=== PATIENT | male | born 1945 | race Caucasian/White ===

== ENCOUNTER 2017-06-18 16:40 | Emergency (ER) | payer MEDICARE, OTHER, SELFPAY ==
[2017-06-18 16:42] VITALS: BP 131/100; PULSE 67; RESP 18; TEMP 37.3; O2SAT 99; BMI 34.0
--- NOTE | 2017-06-18 17:16 | RAD_ITS ---
STUDY: X-RAY CHEST REASON FOR EXAM: Male, 71 years old. Dyspnea TECHNIQUE: Frontal view of the chest COMPARISON: None. FINDINGS: The lungs are clear. There are no pleural effusions. There is no pneumothorax. The heart is normal in size. The visualized osseous structures are within normal limits. RAD/Chest 1 View (Portable) IMPRESSION: No acute thoracic pathology. Electronically Signed: Sagar Falcon, at 17:47 EDT Tel , Service support ,
--- NOTE | 2017-06-18 17:16 | EKG12_ITS ---
Test Reason : Blood Pressure : / mmHG Vent. Rate : 141 BPM Atrial Rate : 131 BPM P-R Int : 000 ms QRS Dur : 088 ms QT Int : 314 ms P-R-T Axes : 000 046 022 degrees QTc Int : 480 ms Atrial fibrillation Abnormal ECG Confirmed by NISH GARCIA ([id number]), senior technical editor IOANA VIDAL ([id number]) on 06/21/2017 2:31:48 PM Referred By: EDINSON Confirmed By:NISH GARCIA
--- NOTE | 2017-06-18 17:19 | ED.VISSUMM ---
- ER Visit Summary Date of Service: 06/18/17 Chief Complaint: Linette albrecht with RVR History of Present Illness: The patient is a 71 M with history of gastric bypass and hypertension who presents from urgent care after being found in A. fib with RVR. Patient had gone to urgent care because of 4 days of URI symptoms including cough, congestion, myalgias, and dizziness. He has been taking Sudafed for his symptoms. He denies any chest pain or shortness of breath. No history of atrial fibrillation and no sensation of palpitations. Physical Examination: Vital signs: afebrile, hemodynamically stable, no hypoxia on room air General: well nourished, well developed, in no distress Skin: warm, dry, no rash, no pallor HEENT: normocephalic and atraumatic; PERRL, EOMI, moist mucous membranes Cardiovascular: Irregular tachycardia without murmurs, no peripheral edema, 2+ pulses all distal extremities Respiratory: No increased work of breathing, lungs are clear to auscultation bilaterally, no rales, rhonchi or wheezing Abdominal: Abdomen is soft, nontender with normoactive bowel sounds, no guarding or rebound, no masses MSK: Moves all extremities, no deformities, normal strength Neuro: Awake and alert, oriented ?4. No facial droop, sensation and motor function intact and symmetric Test Results: Abnormal Lab Results 06/18/17 06/18/17 06/18/17 17:35 17:35 17:35 WBC 4.0 L RBC 5.13 Hgb 14.9 Hct 46.0 MCV 89.7 MCH 29.0 MCHC 32.4 RDW 13.8 RDW Differential 45.1 H Plt Count 151 MPV 11.4 Immature Gran % (Auto) 0.200 Neut % (Auto) 56.2 Lymph % (Auto) 28.8 [place] % (Auto) 12.4 H Eos % (Auto) 2.2 Baso % (Auto) 0.2 Absolute Neuts (auto) 2.3 Absolute Lymphs (auto) 1.16 Total Counted Not Reportable PT 14.9 INR 1.2 APTT 35.9 Sodium 139 Potassium 4.3 Chloride 104 Carbon Dioxide 26.0 Anion Gap 9 BUN 7 Creatinine 0.88 Estim Creat Clear Calc 86.96 Est GFR (MDRD) Af Amer 110 Est GFR (MDRD) Non-Af 91 BUN/Creatinine Ratio 7.9 L Glucose 106 Calcium 8.4 L Troponin I < 0.02 TSH 1.48 Emergency Department Course and Treatment: EKG showed atrial fibrillation with rapid ventricular response without any ischemic changes. Patient has had no sense of palpitations and thus it is unclear how long he has been in A. fib with RVR. Troponin negative. TSH within normal limits. No electrolyte derangements. No leukocytosis. No pneumonia on chest x-ray. Patient was given a dose of IV Cardizem with rate control. This was followed by oral Cardizem. Patient remained hemodynamically stable and asymptomatic other than his URI symptoms. Patient was discussed with Dr. Eduardo, who recommended patient be started on Xarelto and continued on oral Cardizem, with close outpatient follow-up with his office. I discussed with patient to avoid any stimulants such as Sudafed, as this may have contributed to his rapid heart rate. Patient will continue symptomatic control with [id number] medications but avoid any stimulants. He was discharged home in improved condition. Treatment Plan: [] Disposition: [] Impression: A. fib with RVR, URI symptoms This note was generated with [employer] dictation software. It may contain incorrect words, spelling, and punctuation that were not noted in review of the chart prior to signing ED Disposition - Plan for ED Patient: Disposition: Home or Assisted Living Chief Complaint: Palpitations Instructions: ED Afib Prescriptions: Rivaroxaban [Xarelto] 20 mg PO DAILY 30 Days #30 tab Diltiazem CD [Cardizem CD] 120 mg PO BID #60 cap Referrals: Miko Farooq MD [Primary Care Provider] - Anthony Eduardo MD [STAFF PHYSICIAN] - As soon as possible Additional Instructions: You have been prescribed 2 new medications for treatment of your atrial fibrillation. Please take the Xarelto daily and the Cardizem twice daily as prescribed. Please follow up with Dr. Eduardo, the bingo checker. His office will call you with a follow up appointment. If you do not hear from his office within 2 days, please call to schedule the follow-up appointment. Do not take Sudafed or any other stimulants for your cold, as these may make your heart rate worse.
[2017-06-18] MEDS: dilTIAZem 25 MG/5 ML Vial 20 MG IV BOLUS (17:31)
[2017-06-18] MEDS: Aspirin 81 MG TAB.CHEW 324 MG PO (17:31)
[2017-06-18 18:00] LABS: Absolute Lymphocyte Count 1.16 X10^3/ul (0.83-4.51); Absolute Neutrophil Count 2.3 X10^3/uL (2.0-7.7); Basophil# 0.01 X10^3/uL; Basophil% 0.2 % (0-1); Eosinophil# 0.09 X10^3/uL; Eosinophils% 2.2 % (0-5); Hemoglobin 14.9 g/dl (13.0-16.5); Lymphocyte # 1.16 X10^3/ul (4.0); Lymphocyte % 28.8 % (19-41); Mean Corp Hgb Conc 32.4 g/gl (32-36); Mean Corpuscular Volume 89.7 fL (80-94); Mean Platelet Vol. 11.4 fl (6.2-12.0); Monocyte% 12.4 % (0-10); Neutrophil # 2.26 X10^3/uL (2.7-7.7); Neutrophil % 56.2 % (47-70); Platelet Count 151 K/mm3 (150-450); RBC Distribution Width CV 13.8 % (11.6-14.6); RBC Distribution Width SD 45.1 fl (35.1-43.9); Red Blood Count 5.13 M/mm3 (4.6-6.2)
[2017-06-18 18:03] LABS: International Normalized Ratio 1.2; Prothrombin Time (Protime)PT. 14.9 SECONDS (11.7-14.9)
[2017-06-18 18:04] LABS: Partial Thromboplast Time 35.9 Seconds (24.1-36.2)
[2017-06-18 18:07] VITALS: PULSE 83
[2017-06-18 18:14] LABS: POSITIVE COUNT NO; POSITIVE DIFFERENTIAL NO; POSITIVE MORPHOLOGY NO
[2017-06-18 18:15] LABS: Anion Gap 9 (5-15); BUN 7 mg/dL (7-18); BUN/Creat Ratio 7.9 RATIO (10-20); Calcium,Total 8.4 mg/dL (8.5-10.1); Chloride 104 mmol/L (98-107); Creatinine, Serum 0.88 mg/dL (0.70-1.30); EST Glomerular Filtration Rate 91 mL/min (>60); Est Glom Filt Rate - Afr Amer 110 mL/min (>60); Estimated Creatinine Clearance 86.96 ml/min; Glucose 106 mg/dL (74-106); Potassium 4.3 mmol/L (3.5-5.1); Sodium Level 139 mmol/L (136-145); Thyroid Stim Hormone (TSH) 1.48 uIU/mL (0.358-3.74)
--- NOTE | 2017-06-18 19:08 | ED.DEP ---
ED Disposition - Plan for ED Patient: Disposition: Home or Assisted Living Chief Complaint: Palpitations Instructions: ED Afib Prescriptions: Rivaroxaban [Xarelto] 20 mg PO DAILY 30 Days #30 tab Diltiazem CD [Cardizem CD] 120 mg PO BID #60 cap Referrals: Miko Farooq MD [Primary Care Provider] - Anthony Eduardo MD [STAFF PHYSICIAN] - As soon as possible Additional Instructions: You have been prescribed 2 new medications for treatment of your atrial fibrillation. Please take the Xarelto daily and the Cardizem twice daily as prescribed. Please follow up with Dr. Eduardo, the automatic splicing machine operator. His office will call you with a follow up appointment. If you do not hear from his office within 2 days, please call to schedule the follow-up appointment. Do not take Sudafed or any other stimulants for your cold, as these may make your heart rate worse.
[2017-06-18] MEDS: dilTIAZem CD 120 MG Capsule PO (19:16)
[2017-06-18] MEDS: Rivaroxaban 20 MG Tablet PO (19:16)
[2017-06-18 19:17] VITALS: BP 139/97; PULSE 92; RESP 18; O2SAT 96
== END 2017-06-18 19:23 | disposition home or self-care (01) ==
PROVIDERS: Emergency Provider Emergency Medicine; Family Provider Family Medicine; PCP Family Medicine
DX: I48.91 Unspecified atrial fibrillation (principal); J06.9 Acute upper respiratory infection, unspecified; Z98.84 Bariatric surgery status; I10 Essential (primary) hypertension
CPT/HCPCS: 71045; 80048; 84443; 84484; 85025; 85610; 85730; 93005; 96374; 99285; A4216

== ENCOUNTER → 2017-07-03 10:45 | Outpatient (CLI) | payer MEDICARE, OTHER, SELFPAY ==
--- NOTE | 2017-07-03 10:47 | ECHOD_ITS ---
Reason For Study: AFIB/FLUTTER Procedure This was a 2D Doppler, Color Flow transthoracic echocardiogram. The study was technically difficult. Due to body habitus. Contrast injection was performed. Exam performed in department. Left Ventricle Normal LV size. Sigmoid septum. Left ventricular systolic function is normal. The estimated ejection fraction is 55 %. Unable to assess diastolic dysfunction. No regional wall motion abnormalities noted. Right Ventricle Normal RV size. Normal systolic function. Atria The left atrium is severely enlarged. The right atrium is mildly enlarged. Mitral Valve Normal mitral valve. Tricuspid Valve Normal tricuspid valve. Mild (1+) tricuspid valve insufficiency. Pulmonary artery systolic pressure is 28 mmHg. Aortic Valve The aortic valve is not well visualized. Pulmonic Valve The pulmonic valve is not well visualized. Great Vessels Normal aortic root. The pulmonary artery is normal size. Normal inferior vena cava. Pericardium/Pleural No pericardial effusion. Medication Diluted definity 4.0ml given slow IV push to enhance endocardial definition. MMode/2D Measurements & Calculations LVIDd: 4.6 cm IVSd: 1.5 cm Ao root diam: 3.1 cm LVIDs: 3.1 cm LVPWd: 1.1 cm LA dimension: 5.4 cm RVDd: 3.7 cm FS: 33.0 % LAV(MOD-bp): 144.7 ml LAV(MOD-bp) Indexed: 62.6 ml/m2 LA A4 area: 36.0 cm2 RA A4 area: 20.8 cm2 LAV(MOD-sp2): 139.2 ml LAV(MOD-sp4): 149.0 ml Doppler Measurements & Calculations MV E max pat: 84.5 cm/sec Ao V2 max: 113.9 cm/sec LV V1 max: 97.9 cm/sec Ao max P.2 mmHg LV V1 max P.8 mmHg PA V2 max: 80.8 cm/sec TR max pat: 237.4 cm/sec TR max P.6 mmHg Interpretation Summary Normal LV size. Sigmoid septum. Left ventricular systolic function is normal. The estimated ejection fraction is 55 %. The left atrium is severely enlarged. Pulmonary artery systolic pressure is 28 mmHg. Contrast injection was performed. Ordering Physician: Anthony Eduardo Referring Physician: Zoran Farooq Performed By: Lexis Rubio, ÁNGELA, RVT
== END ==
PROVIDERS: Family Provider Family Medicine; PCP Family Medicine; Visit Provider Internal Medicine Cardiovascular Disease
DX: I07.1 Rheumatic tricuspid insufficiency (principal); I48.91 Unspecified atrial fibrillation; I48.92 Unspecified atrial flutter
CPT/HCPCS: 93306; Q9957; A4216

== ENCOUNTER → 2017-07-05 07:06 | Outpatient (CLI) | payer MEDICARE, OTHER, SELFPAY ==
--- NOTE | 2017-07-05 17:32 | STRESSREP ---
Stress Test Report Exercise myocardial perfusion stress test. 71-year-old man with a history of new onset atrial fibrillation. Stress protocol: Resting EKG demonstrates atrial for ablation with a rate of 94 beats minute occasional premature ventricular complexes noted. The patient exercised according to regular Bradford protocol for total duration of 5 minutes the maximum heart rate attained was 1 81 bpm was 119% maximum predicted heart rate the maximum workload attained was 7 metabolic equivalents. At rest there were no ST or T-wave changes noted suggest ischemia the patient maintained atrial for ablation throughout the recording. At peak exercise upsloping ST changes only were noted would not be the criteria for ischemia. No clinical angina was noted. Myocardial perfusion protocol. 14.93 of technetium 99m sestamibi was injected at rest. Patient exercised according to regular Bradford protocol for 5 minutes attaining 119% maximum predicted heart rate and a workload of 7 metabolic equivalents. At peak exercise 44.6 mCi of technetium 99m sestamibi was injected stress images were obtained stress and rest images were reconstructed and compared in the short axis vertical long and horizontal long axis. Gated images were also obtained Perfusion SPECT analysis: Review of the stress images demonstrate normal uptake of tracer noted in all areas of myocardium. The resting images similarly demonstrate normal uptake of tracer noted in all areas myocardium. No areas of reversibility and is just ischemia no previous infarct is noted. Gated SPECT analysis. Normal EF 51% Conclusion: Exercise myocardial perfusion stress test with no evidence of ischemia at a moderate workload. Atrial fibrillation with good heart rate response to exercise. Preserved ejection fraction.
== END ==
PROVIDERS: Family Provider Family Medicine; PCP Family Medicine; Visit Provider Internal Medicine Cardiovascular Disease
DX: I48.91 Unspecified atrial fibrillation (principal); I25.10 Atherosclerotic heart disease of native coronary artery without angina pectoris
CPT/HCPCS: 78452; 93017; A9500; A4216

== ENCOUNTER 2017-07-30 11:04 | Day surgery (SDC) | payer MEDICARE, OTHER, SELFPAY ==
[2017-07-25 11:43] LABS: International Normalized Ratio 1.9; Prothrombin Time (Protime)PT. 21.7 SECONDS (11.7-14.9)
[2017-07-25 12:13] LABS: Anion Gap 7 (5-15); BUN 13 mg/dL (7-18); BUN/Creat Ratio 14.3 RATIO (10-20); Calcium,Total 8.6 mg/dL (8.5-10.1); Chloride 104 mmol/L (98-107); Creatinine, Serum 0.91 mg/dL (0.70-1.30); EST Glomerular Filtration Rate 88 mL/min (>60); Est Glom Filt Rate - Afr Amer 106 mL/min (>60); Glucose 111 mg/dL (74-106); Potassium 4.2 mmol/L (3.5-5.1); Sodium Level 138 mmol/L (136-145)
[2017-07-27 09:30] VITALS: BMI 33.7
--- NOTE | 2017-07-30 12:23 | PCM.OP.BLANK ---
Operative Report Date of Procedure: 07/30/17 DC cardioversion. 71-year-old man with a history of chronic atrial fibrillation who has been anticoagulated with Xarelto. The patient has an ejection fraction of 55% and was brought in for elective DC cardioversion. After the patient had been evaluated by Dr. Gutierrez of the critical care division, he was anesthetized with 120 mg of intravenous propofol. AP pads were applied and 200 J of DC cardioversion energy were applied which was unsuccessful in converting him to sinus rhythm and subsequently 300 J ?2 DC cardioversion energy were applied. The patient reverted briefly into sinus rhythm for a few minutes and then went back into atrial fibrillation. Patient tolerated the procedure well. Unsuccessful DC cardioversion to sinus rhythm from atrial fibrillation. Plan Add amiodarone 200 mg twice daily and repeat cardioversion in 3 weeks.
--- NOTE | 2017-07-30 17:11 | PCM.OP.BLANK ---
Problem List (1) Atrial fibrillation with rapid ventricular response Status: Acute (2) Obesity (BMI 30.0-34.9) Status: Chronic (3) Type 2 diabetes mellitus without complications Status: Resolved Operative Report Date of Procedure: 07/30/17 - Conscious sedation CONSCIOUS SEDATION REPORT BRIEF HISTORY OF PRESENT ILLNESS: The patient is an 71-year-old male who presented to [facility] for an elective outpatient cardioversion due to underlying atrial fibrillation by Dr. Eduardo. The patient's last surface echocardiogram revealed ejection fraction of 55%. The patient denies a previous history of anesthetic complications. Patient denies a history of asthma or other lung pathology. Patient reports a history of obstructive sleep apnea, but has been noncompliant with therapy. Patient is currently anticoagulated on Xarelto. Patient denies any history of smoking. PHYSICAL EXAMINATION: VITAL SIGNS: Reviewed and were acceptable. GENERAL: The patient is a male, in no apparent distress, speaking in full sentences. HEENT: Normocephalic, atraumatic. Mucous membranes are moist and pink. Good mouth opening noted. Trachea is midline. Good neck mobility. Mallampati 3 CHEST: S1, S2 irregularly irregular. No murmurs, rubs or gallops were noted. LUNGS: Clear to auscultation bilaterally without appreciable wheezes, rales or rhonchi. ABDOMEN: Soft, nontender, nondistended. Positive bowel sounds. EXTREMITIES: There is no clubbing, cyanosis or edema. ASA Class: II DESCRIPTION OF PROCEDURE: After confirmation of informed consent, the patient's anesthesia plan was reviewed in detail. Propofol was chosen. Risks and benefits were reviewed and the patient agreed to proceed. At 11:51 AM, the patient was given 40 mg of propofol. The patient required a total of 120 mg of propofol over the course of the entire procedure. The patient did received attempts at cardioversion using 200 J, 300 J and 300 J respectively. None were successful in achieving normal sinus rhythm. Attempts were aborted at Dr. Eduardo's recommendation. The patient was monitored until 12:04 PM, at which time he reached his baseline mental status and function. The patient tolerated the procedure well. COMPLICATIONS: Unsuccessful procedure ESTIMATED BLOOD LOSS: None RECOMMENDATIONS: Okay to recover in usual fashion. Code Visit 9xxxx: Other Procedure See Report - 18147 - 13 minutes of conscious sedation
== END 2017-07-30 13:15 | disposition home or self-care (01) ==
LOC: CLSP 11:04
PROVIDERS: Family Provider Family Medicine; PCP Family Medicine; Visit Provider Internal Medicine Cardiovascular Disease
DX: I48.2 Chronic atrial fibrillation (principal); E11.9 Type 2 diabetes mellitus without complications; Q76.0 Spina bifida occulta; I10 Essential (primary) hypertension; G47.33 Obstructive sleep apnea (adult) (pediatric); E66.9 Obesity, unspecified; K21.9 Gastro-esophageal reflux disease without esophagitis; Z91.19 Patient's noncompliance with other medical treatment and regimen; Z79.01 Long term (current) use of anticoagulants; Z79.899 Other long term (current) drug therapy; Z98.84 Bariatric surgery status
CPT/HCPCS: 36415; 80048; 85610; 92960; 93005; J7030

== ENCOUNTER 2017-08-20 10:23 | Day surgery (SDC) | payer MEDICARE, OTHER, SELFPAY ==
[2017-08-17 09:50] VITALS: BMI 33.7
--- NOTE | 2017-08-20 10:55 | PCM.PN.BLA ---
Progress Note ADDENDUM Addendum entered and electronically signed by JUAN lOsen 08/20/17 11:01: Patient had underwent an unsuccessful cardioversion on July 30, 2017. He does have a history of persistent atrial fibrillation with a normal ejection fraction. He was then started on amiodarone with the plan of repeating a cardioversion in 3 weeks. He is here today for a cardioversion. He has been anticoagulated with a factor Xa inhibitor. He is symptomatic with his atrial fibrillation. He notes that he is fatigued, he is short of breath and does feel his atrial fibrillation. I have re-examined the patient. There are no clinical changes since the date of exam. Assessment & Plan 1. Atrial fibrillation with rapid ventricular response I48.91 Orders Orders: Echo Complete 06/29/17 Nuclear Stress Test - Treadmil 06/29/17 2. Essential hypertension I10 Plan Detail Other Medications Refilled: rivaroxaban 20 mg PO DAILY 30 days diltiazem CD 120 mg PO BID Follow Up 1 Month ([facility]) HPI HPI Chief Complaint: Initial visit Details: FARIBA ALATORRE, is a 71 M who presents to the office today for an initial visit. He had presented to the urgent care clinic with head congestion nasal drainage sore throat and had been taking [id number] Mucinex and Sudafed. He was noted to be in atrial for ablation with rapid ventricular response rate with a heart rate of approximately 128 bpm he was started on Xarelto as well as Cardizem and is done well since he was referred to us for further evaluation. He denies any chest pain or shortness breath or paroxysmal nocturnal dyspnea pedal edema no neck arm or jaw discomfort suggest angina no dizziness or diaphoresis no near syncope or syncope. His previous EKGs were reviewed. His physical exam demonstrates clear lung manuel regular rate and rhythm irregular regular heart rate. Intake Vital Signs 06/29/17 Height 6 ft 06/29/17 Weight: 249 lb 06/29/17 Body Mass Index (BMI) 33.7 06/29/17 Blood Pressure 110/70 06/29/17 Respiratory Rate 16 06/29/17 Pulse Rate 82 Intake Visit Reasons: [facility] ER 3-19 Allergies lisinopril Allergy (Verified 06/29/17 11:30) Shortness of breath ursodiol Allergy (Verified 06/29/17 11:30) Rash Medications Losartan Potassium [Cozaar] 25 mg PO DAILY 06/18/17 [History Confirmed 06/29/17] cholecalciferol (vitamin D3) 1,000 unit capsule 3,000 unit PO QDAY cap 06/28/17 [History Confirmed 06/29/17] cyanocobalamin (vit B-12) 1,000 mcg capsule 1,000 mcg PO QDAY 06/28/17 [History Confirmed 06/29/17] sildenafil 100 mg tablet PO 10 Days #10 06/28/17 [History Confirmed 06/29/17] diltiazem CD 120 mg capsule,extended release 24 hr 120 mg PO BID #180 cap 06/29/17 [Rx Confirmed 06/29/17] rivaroxaban 20 mg tablet 20 mg PO DAILY 30 Days #30 tab 06/29/17 [Rx Confirmed 06/29/17] [facility] Medical History Type 2 diabetes mellitus without complications (Resolved) Obesity (BMI 30.0-34.9) (Chronic) Hypertension (Chronic) Atrial fibrillation with rapid ventricular response (Acute ~06/18/17) GERD (gastroesophageal reflux disease) (Chronic) 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) Spina bifida occulta (Chronic) Sleep apnea (Ruled-out) Insomnia (Inactive) Surgical History History of gastric bypass (Chronic ~12/2008) History of tonsillectomy (Chronic) ankle surgery (Chronic) Family History Father CAD (coronary artery disease) CABG mid 50's and redo mid 70's Mother Heart disease ICD Social History Smoking Status: Never smoker ROS Const Const: Positive for fatigue; negative for weakness, difficulty sleeping, frequent falls, headache(s) or excessive sweating Eyes Eyes: Negative for loss of peripheral vision, transient loss of vision, blurry vision or double vision ENT ENT: Negative for headache(s), dizziness, Nosebleed/epistaxis or balance problems Cardio Chest Pain: No Edema: None Muscle aches with walking: None Resp Respiratory: Positive for SOB with activity (When climbing stairs); negative for SOB at rest, SOB orthopnea\SOB lying down or paroxysmal nocturnal dyspnea GI GI: Negative nausea or heartburn : Negative for hematuria Musc Musc: Negative for muscle aches/ myalgia, muscle weakness, joint pain or balance problems Skin Skin: Negative non-healing lesions, unusual bruising or rash Neuro Neuro: Negative for weakness, frequent falls, blurry vision, headache(s), dizziness, lightheadedness, orthostatic symptoms or double vision Sheng Hematologic/Lymphatic: Negative for easy bruising Endo Endo: Positive for fatigue; negative for excessive sweating or increased thirst/drinking Psych Psych: Negative for anxiety or depression Allergy Allergy/Immunology: Negative for hives, Negative for rash Cardiology Exam Const Appearance: cooperative, healthy appearing, well developed, well groomed and no acute distress Nutritional Appearance: well nourished and average body habitus Orientation: alert, awake and oriented x3 Head Head: normal to inspection, normocephalic and atraumatic Ears: hearing grossly normal bilaterally and external ears normal Nose: external nose normal, nasal mucous membranes and turbinates normal, nares normal, septum normal, no nasal discharge Face and Sinus: face symmetric Mouth: oral mucosae normal, tongue normal, oropharynx normal and moist mucous membranes Teeth and gingiva: dentition normal Throat: posterior oropharynx normal, tonsils normal and uvula midline Eyes General: appearance normal, both eyes and all related structures Eyelids: eyelids normal Conjunctivae: conjunctivae normal Pupils: PERRL, normal by confrontation and accommodation normal EOM: EOM intact bilaterally Neck Neck: normal visual inspection, trachea midline and no JVD JVD: +5 Carotids: normal carotid upstroke and bounding pulses Chest Chest inspection: normal inspection of the chest, symmetric chest movement and normal respiratory effort Auscultation: Bilateral: Clear to Auscultation Cardio Palpation: normal PMI Rhythm: irregular rhythm Heart sounds: S1 normal and S2 normal GI GI: normal to inspection, soft, no hepatosplenomegaly and bowel sounds present Neuro General: alert, awake, oriented x3, no focal sensory deficit, gait normal and moves all extremities Skin Skin: no rashes or lesions noted Extremities Pulses: Normal: Right Femoral Pulse, Left Femoral Pulse, Right Dorsalis Pedis Pulse, Left Dorsalis Pedis Pulse, Right Posterior Tibial Pulse, Left Posterior Tibial Pulse, Right Radial Pulse, Left Radial Pulse Lower Extremity Edema: None: Bilateral Musculoskel Musculoskeletal: No joint tenderness Psych Psychological: normal affect Assessment & Plan 1. Atrial fibrillation with rapid ventricular response I48.91 Plan He does have a history of atrial fibrillation with rapid ventricular response rate to the exact duration is unclear at this particular time my recommendation is for him to continue on the Xarelto as well as the calcium channel susan and set him up for an echocardiogram as well as a myocardial perfusion stress test. Depending on the results further recommendations will be made. I would like to recommend that we bring him back in 4 weeks and then set him up for a DC cardioversion if he is still in atrial fibrillation Orders Orders: Echo Complete Today Nuclear Stress Test - Treadmil Today 2. Essential hypertension I10 Plan His blood pressure appears to be under good control and we will continue the losartan and Cardizem for now without any changes. Thank you for allowing me to participate in the care of your patient. Please don't hesitate to call if any issues arise Plan Detail Other Medications Refilled: rivaroxaban 20 mg PO DAILY 30 days diltiazem CD 120 mg PO BID Follow Up 1 Month (r) Coding Level of Care Code Off vis,new,level 4 Diagnoses Atrial fibrillation with rapid ventricular response I48.91 Essential hypertension I10 Hypertension type: essential hypertension Coding Level of Care Code Off vis,new,level 4 Diagnoses Atrial fibrillation with rapid ventricular response I48.91 Essential hypertension I10 Hypertension type: essential hypertension
--- NOTE | 2017-08-20 11:02 | PN_ITS ---
Progress Note ADDENDUM Addendum entered and electronically signed by JUAN Olsen 11:01: Patient had underwent an unsuccessful cardioversion on July 30, 2017. He does have a history of persistent atrial fibrillation with a normal ejection fraction. He was then started on amiodarone with the plan of repeating a cardioversion in 3 weeks. He is here today for a cardioversion. He has been anticoagulated with a factor Xa inhibitor. He is symptomatic with his atrial fibrillation. He notes that he is fatigued, he is short of breath and does feel his atrial fibrillation. I have re-examined the patient. There are no clinical changes since the date of exam. Assessment & Plan 1. Atrial fibrillation with rapid ventricular response I48.91 Orders Orders: Echo Complete 06/29/17 Nuclear Stress Test - Treadmil 06/29/17 2. Essential hypertension I10 Plan Detail Other Medications Refilled: rivaroxaban 20 mg PO DAILY 30 days diltiazem CD 120 mg PO BID Follow Up 1 Month ([facility]) HPI HPI Chief Complaint: Initial visit Details: FARIBA ALATORRE, is a 71 M who presents to the office today for an initial visit. He had presented to the urgent care clinic with head congestion nasal drainage sore throat and had been taking [id number] Mucinex and Sudafed. He was noted to be in atrial for ablation with rapid ventricular response rate with a heart rate of approximately 128 bpm he was started on Xarelto as well as Cardizem and is done well since he was referred to us for further evaluation. He denies any chest pain or shortness breath or paroxysmal nocturnal dyspnea pedal edema no neck arm or jaw discomfort suggest angina no dizziness or diaphoresis no near syncope or syncope. His previous EKGs were reviewed. His physical exam demonstrates clear lung manuel regular rate and rhythm irregular regular heart rate. Intake Vital Signs 06/29/17 Height 6 ft 06/29/17 Weight: 249 lb 06/29/17 Body Mass Index (BMI) 33.7 06/29/17 Blood Pressure 110/70 06/29/17 Respiratory Rate 16 06/29/17 Pulse Rate 82 Intake Visit Reasons: [facility] ER 3-19 Allergies lisinopril Allergy (Verified 06/29/17 11:30) Shortness of breath ursodiol Allergy (Verified 06/29/17 11:30) Rash Medications Losartan Potassium [Cozaar] 25 mg PO DAILY 06/18/17 [History Confirmed 06/29/17] cholecalciferol (vitamin D3) 1,000 unit capsule 3,000 unit PO QDAY cap [History Confirmed 06/29/17] cyanocobalamin (vit B-12) 1,000 mcg capsule 1,000 mcg PO QDAY 06/28/17 [History Confirmed 06/29/17] sildenafil 100 mg tablet PO 10 Days #10 06/28/17 [History Confirmed 06/29/17] diltiazem CD 120 mg capsule,extended release 24 hr 120 mg PO BID #180 cap [Rx Confirmed 06/29/17] rivaroxaban 20 mg tablet 20 mg PO DAILY 30 Days #30 tab 06/29/17 [Rx Confirmed 06/29/17] [facility] Medical History Type 2 diabetes mellitus without complications (Resolved) Obesity (BMI 30.0-34.9) (Chronic) Hypertension (Chronic) Atrial fibrillation with rapid ventricular response (Acute ~06/18/17) GERD (gastroesophageal reflux disease) (Chronic) 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) Spina bifida occulta (Chronic) Sleep apnea (Ruled-out) Insomnia (Inactive) Surgical History History of gastric bypass (Chronic ~12/2008) History of tonsillectomy (Chronic) ankle surgery (Chronic) Family History Father CAD (coronary artery disease) CABG mid 50's and redo mid 70's Mother Heart disease ICD Social History Smoking Status: Never smoker ROS Const Const: Positive for fatigue; negative for weakness, difficulty sleeping, frequent falls, headache(s) or excessive sweating Eyes Eyes: Negative for loss of peripheral vision, transient loss of vision, blurry vision or double vision ENT ENT: Negative for headache(s), dizziness, Nosebleed/epistaxis or balance problems Cardio Chest Pain: No Edema: None Muscle aches with walking: None Resp Respiratory: Positive for SOB with activity (When climbing stairs); negative for SOB at rest, SOB orthopnea\SOB lying down or paroxysmal nocturnal dyspnea GI GI: Negative nausea or heartburn : Negative for hematuria Musc Musc: Negative for muscle aches/ myalgia, muscle weakness, joint pain or balance problems Skin Skin: Negative non-healing lesions, unusual bruising or rash Neuro Neuro: Negative for weakness, frequent falls, blurry vision, headache(s), dizziness, lightheadedness, orthostatic symptoms or double vision Sheng Hematologic/Lymphatic: Negative for easy bruising Endo Endo: Positive for fatigue; negative for excessive sweating or increased thirst/drinking Psych Psych: Negative for anxiety or depression Allergy Allergy/Immunology: Negative for hives, Negative for rash Cardiology Exam Const Appearance: cooperative, healthy appearing, well developed, well groomed and no acute distress Nutritional Appearance: well nourished and average body habitus Orientation: alert, awake and oriented x3 Head Head: normal to inspection, normocephalic and atraumatic Ears: hearing grossly normal bilaterally and external ears normal Nose: external nose normal, nasal mucous membranes and turbinates normal, nares normal, septum normal, no nasal discharge Face and Sinus: face symmetric Mouth: oral mucosae normal, tongue normal, oropharynx normal and moist mucous membranes Teeth and gingiva: dentition normal Throat: posterior oropharynx normal, tonsils normal and uvula midline Eyes General: appearance normal, both eyes and all related structures Eyelids: eyelids normal Conjunctivae: conjunctivae normal Pupils: PERRL, normal by confrontation and accommodation normal EOM: EOM intact bilaterally Neck Neck: normal visual inspection, trachea midline and no JVD JVD: +5 Carotids: normal carotid upstroke and bounding pulses Chest Chest inspection: normal inspection of the chest, symmetric chest movement and normal respiratory effort Auscultation: Bilateral: Clear to Auscultation Cardio Palpation: normal PMI Rhythm: irregular rhythm Heart sounds: S1 normal and S2 normal GI GI: normal to inspection, soft, no hepatosplenomegaly and bowel sounds present Neuro General: alert, awake, oriented x3, no focal sensory deficit, gait normal and moves all extremities Skin Skin: no rashes or lesions noted Extremities Pulses: Normal: Right Femoral Pulse, Left Femoral Pulse, Right Dorsalis Pedis Pulse, Left Dorsalis Pedis Pulse, Right Posterior Tibial Pulse, Left Posterior Tibial Pulse, Right Radial Pulse, Left Radial Pulse Lower Extremity Edema: None: Bilateral Musculoskel Musculoskeletal: No joint tenderness Psych Psychological: normal affect Assessment & Plan 1. Atrial fibrillation with rapid ventricular response I48.91 Plan He does have a history of atrial fibrillation with rapid ventricular response rate to the exact duration is unclear at this particular time my recommendation is for him to continue on the Xarelto as well as the calcium channel susan and set him up for an echocardiogram as well as a myocardial perfusion stress test. Depending on the results further recommendations will be made. I would like to recommend that we bring him back in 4 weeks and then set him up for a DC cardioversion if he is still in atrial fibrillation Orders Orders: Echo Complete Today Nuclear Stress Test - Treadmil Today 2. Essential hypertension I10 Plan His blood pressure appears to be under good control and we will continue the losartan and Cardizem for now without any changes. Thank you for allowing me to participate in the care of your patient. Please don't hesitate to call if any issues arise Plan Detail Other Medications Refilled: rivaroxaban 20 mg PO DAILY 30 days diltiazem CD 120 mg PO BID Follow Up 1 Month (r) Coding Level of Care Code Off vis,new,level 4 Diagnoses Atrial fibrillation with rapid ventricular response I48.91 Essential hypertension I10 Hypertension type: essential hypertension Coding Level of Care Code Off vis,new,level 4 Diagnoses Atrial fibrillation with rapid ventricular response I48.91 Essential hypertension I10 Hypertension type: essential hypertension
--- NOTE | 2017-08-20 12:19 | PCM.OP.BLANK ---
Operative Report Date of Procedure: 08/20/17 DC cardioversion. 71-year-old man with a history of chronic persistent atrial fibrillation estimated ejection fraction of 55% on chronic anticoagulation. The patient was brought to the cardiac catheterization lab noninvasive suite in the postabsorptive nonsedated state. The patient was seen by Dr. Araiza of the critical care division. Informed consent was obtained. The patient was administered 80 mg of intravenous propofol and then subsequently underwent the placement of AP pads and the administration of 200 J of DC biphasic cardioversion energy. This was unsuccessful in converting him to sinus rhythm. An additional 20 mg of intravenous propofol was administered and the patient received 360 J of biphasic DC cardioversion energy which was unsuccessful in converting him to sinus rhythm. Further 360 J of DC cardioversion energy was applied which was also unsuccessful. Conclusion: Unsuccessful DC cardioversion from atrial fibrillation. Recommendations: DC amiodarone. We will follow-up in office in 6 weeks on anticoagulation and beta-susan and further recommendations made.
--- NOTE | 2017-08-20 13:11 | OP.PCM_ITS ---
Operative Report Date of Procedure: 08/20/17 CONSCIOUS SEDATION REPORT DATE OF SERVICE: August 20, 2017 BRIEF HISTORY OF PRESENT ILLNESS: The patient is a 71-year-old male who presented to [facility] for an elective outpatient cardioversion due to underlying atrial fibrillation. The patient has a known ejection fraction of approximately 55%. He is currently anticoagulated on Xarelto. He did previously undergo a cardioversion in July 2017, during which time he received a total of 120 mg of propofol throughout the procedure. Unfortunately, the previous cardioversion was unsuccessful. The patient does have a history of obstructive sleep apnea, for which he is noncompliant with use of nocturnal Pap therapy. He has no known history of asthma or COPD. PHYSICAL EXAMINATION: VITAL SIGNS: Reviewed and were acceptable. GENERAL: The patient is a , in no apparent distress, speaking in full sentences. HEENT: Normocephalic, atraumatic. Jake membranes are moist and pink. Good mouth opening noted. Trachea is midline. Good neck mobility. MP III CHEST: S1, S2 irregularly irregular. No murmurs, rubs or gallops were noted. LUNGS: Clear to auscultation bilaterally without appreciable wheezes, rales or rhonchi. ABDOMEN: Soft, nontender, nondistended. Positive bowel sounds. EXTREMITIES: There is no clubbing, cyanosis or edema. ASA Class: II DESCRIPTION OF PROCEDURE: After confirmation of informed consent, the patient's anesthesia plan was reviewed in detail. Propofol was chosen. Risks and benefits were reviewed and the patient agreed to proceed. At 1154, the patient was given his first bolus of propofol. In total, the patient received 100 mg of propofol in order to achieve an appropriate level of sedation to facilitate the administration of 3 separate cardioversions attempts: One at 300 J and two at 360 J, by Dr. Eduardo at the bedside. None of the aforementioned cardioversion attempts were successful in achieving normal sinus rhythm. The patient was monitored until 1201, a which time he reached his baseline mental status and function. The patient tolerated the procedure well. COMPLICATIONS: None ESTIMATED BLOOD LOSS: None RECOMMENDATIONS: Okay to recover in usual fashion. Code Visit 9xxxx: Other Procedure See Report - [id number]
== END 2017-08-20 23:59 | disposition home or self-care (01) ==
LOC: CLSP 10:26
PROVIDERS: Family Provider Family Medicine; PCP Family Medicine; Visit Provider Internal Medicine Cardiovascular Disease
DX: I48.2 Chronic atrial fibrillation (principal); I48.1 Persistent atrial fibrillation; I10 Essential (primary) hypertension; E66.9 Obesity, unspecified; Z68.33 Body mass index [BMI] 33.0-33.9, adult; Z79.899 Other long term (current) drug therapy
CPT/HCPCS: 92960; 93005; J7040

== ENCOUNTER 2017-11-26 10:29 | Day surgery (SDC) | payer MEDICARE, OTHER, SELFPAY ==
[2017-11-26 07:16] VITALS: BMI 33.7
[2017-11-26 10:50] LABS: Hematocrit 41.2 % (40-54); Hemoglobin 13.7 g/dl (13.0-16.5); Mean Corp Hgb Conc 33.3 g/gl (32-36); Mean Corpuscular Volume 90.4 fL (80-94); Mean Platelet Vol. 9.6 fl (6.2-12.0); Platelet Count 208 K/mm3 (150-450); RBC Distribution Width SD 45.9 fl (35.1-43.9); Red Blood Count 4.56 M/mm3 (4.6-6.2); White Blood Count 4.9 K/mm3 (4.4-11.0)
[2017-11-26 10:51] LABS: Scan Indicated on CBC? Y/N NO
[2017-11-26 11:00] LABS: International Normalized Ratio 1.7; Prothrombin Time (Protime)PT. 19.9 SECONDS (11.7-14.9)
[2017-11-26 11:02] LABS: Anion Gap 6 (5-15); BUN 9 mg/dL (7-18); BUN/Creat Ratio 9.5 RATIO (10-20); Calcium,Total 8.5 mg/dL (8.5-10.1); Chloride 109 mmol/L (98-107); Creatinine, Serum 0.95 mg/dL (0.70-1.30); EST Glomerular Filtration Rate 83 mL/min (>60); Est Glom Filt Rate - Afr Amer 101 mL/min (>60); Estimated Creatinine Clearance 80.55 ml/min; Glucose 122 mg/dL (74-106); Potassium 4.2 mmol/L (3.5-5.1); Sodium Level 140 mmol/L (136-145)
--- NOTE | 2017-11-26 12:12 | PCM.OP.BLANK ---
Operative Report Date of Procedure: 11/26/17 DC cardioversion. 71-year-old man with a history of persistent atrial flutter status post a flutter ablation. Patient has been on anticoagulation and presents for DC cardioversion electively. After discussion with boiler coverer it was felt the patient had symptomatic atrial flutter and should be cardioverted. The patient was brought to the noninvasive cardiovascular lab was seen by Dr. Gutierrez of the critical care division. Informed consent was obtained. Anterior posterior pads were applied. The patient was then administered 80 mg of intravenous propofol and 200 J of synchronized biphasic DC cardioversion energy were applied with prompt reversal to sinus rhythm. Patient however had frequent periods of atrial tachyarrhythmia noted as well. The above was confirmed on the postprocedure EKG. Conclusion: Successful DC cardioversion to sinus rhythm. Intermittent/paroxysmal atrial fibrillation noted. We will recommend continuing amiodarone at a dose of 200 mg twice a day for 1 week
--- NOTE | 2017-11-26 12:57 | PCM.OP.BLANK ---
Problem List (1) Atrial fibrillation with rapid ventricular response Status: Acute (2) Status post catheter ablation of atrial fibrillation Status: Acute (3) Hypertension Status: Chronic Qualifiers: Hypertension type: essential hypertension Qualified Code(s): I10 - Essential (primary) hypertension (4) Obesity (BMI 30.0-34.9) Status: Chronic (5) Type 2 diabetes mellitus without complications Status: Resolved Operative Report Date of Procedure: 11/26/17 - Conscious sedation CONSCIOUS SEDATION REPORT BRIEF HISTORY OF PRESENT ILLNESS: The patient is a 71-year-old male who presented to [facility] for an elective outpatient cardioversion due to underlying atrial fibrillation. The patient reports no PO intake since midnight. The patient denies having a history of obstructive sleep apnea. The patient reports a history of smoking, but is never been diagnosed with COPD. The patient denies any recent constitutional symptoms such as fevers, chills, nausea or vomiting. The patient denies previous anesthetic complications. Patient does have chronic back pain at baseline. PHYSICAL EXAMINATION: VITAL SIGNS: Reviewed and were acceptable. GENERAL: The patient is an obese male, in no apparent distress, speaking in full sentences. HEENT: Normocephalic, atraumatic. Mucous membranes are moist and pink. Good mouth opening noted. Trachea is midline. Good neck mobility. MP III CHEST: S1, S2 irregularly irregular. No murmurs, rubs or gallops were noted. LUNGS: Clear to auscultation bilaterally without appreciable wheezes, rales or rhonchi. ABDOMEN: Soft, nontender, nondistended. Positive bowel sounds. EXTREMITIES: There is no clubbing, cyanosis or edema. ASA Class: II DESCRIPTION OF PROCEDURE: After confirmation of informed consent, the patient's anesthesia plan was reviewed in detail. Propofol was chosen. Risks and benefits were reviewed and the patient agreed to proceed. At 11:54 AM, the patient was given 40 mg of propofol. The patient required a total of 80 mg of propofol throughout the procedure to achieve appropriate sedation. The patient achieved an appropriate level of sedation and received 1 attempt s synchronized cardioversion, at [address] Eduardo at the bedside. This was successful in achieving normal sinus rhythm. The patient was monitored until 12:05 PM, at which time the patient reached their baseline mental status and function. The patient tolerated the procedure well. COMPLICATIONS: None ESTIMATED BLOOD LOSS: None RECOMMENDATIONS: Okay to recover in usual fashion. Code Visit 9xxxx: Other Procedure See Report - [id number] -11 minutes of conscious sedation
--- NOTE | 2017-11-26 13:00 | OP.PCM_ITS ---
Problem List (1) Atrial fibrillation with rapid ventricular response Status: Acute (2) Status post catheter ablation of atrial fibrillation Status: Acute (3) Hypertension Status: Chronic Qualifiers: Hypertension type: essential hypertension Qualified Code(s): I10 - Essential (primary) hypertension (4) Obesity (BMI 30.0-34.9) Status: Chronic (5) Type 2 diabetes mellitus without complications Status: Resolved Operative Report Date of Procedure: 11/26/17 - Conscious sedation CONSCIOUS SEDATION REPORT BRIEF HISTORY OF PRESENT ILLNESS: The patient is a 71-year-old male who presented to [facility] for an elective outpatient cardioversion due to underlying atrial fibrillation. The patient reports no PO intake since midnight. The patient denies having a history of obstructive sleep apnea. The patient reports a history of smoking, but is never been diagnosed with COPD. The patient denies any recent constitutional symptoms such as fevers, chills, nausea or vomiting. The patient denies previous anesthetic complications. Patient does have chronic back pain at baseline. PHYSICAL EXAMINATION: VITAL SIGNS: Reviewed and were acceptable. GENERAL: The patient is an obese male, in no apparent distress, speaking in full sentences. HEENT: Normocephalic, atraumatic. Mucous membranes are moist and pink. Good mouth opening noted. Trachea is midline. Good neck mobility. MP III CHEST: S1, S2 irregularly irregular. No murmurs, rubs or gallops were noted. LUNGS: Clear to auscultation bilaterally without appreciable wheezes, rales or rhonchi. ABDOMEN: Soft, nontender, nondistended. Positive bowel sounds. EXTREMITIES: There is no clubbing, cyanosis or edema. ASA Class: II DESCRIPTION OF PROCEDURE: After confirmation of informed consent, the patient's anesthesia plan was reviewed in detail. Propofol was chosen. Risks and benefits were reviewed and the patient agreed to proceed. At 11:54 AM, the patient was given 40 mg of propofol. The patient required a total of 80 mg of propofol throughout the procedure to achieve appropriate sedation. The patient achieved an appropriate level of sedation and received 1 attempt s synchronized cardioversion, at [address] Eduardo at the bedside. This was successful in achieving normal sinus rhythm. The patient was monitored until 12:05 PM, at which time the patient reached their baseline mental status and function. The patient tolerated the procedure well. COMPLICATIONS: None ESTIMATED BLOOD LOSS: None RECOMMENDATIONS: Okay to recover in usual fashion. Code Visit 9xxxx: Other Procedure See Report - [id number] -11 minutes of conscious sedation
== END 2017-11-26 13:23 | disposition home or self-care (01) ==
LOC: CLSP 10:30
PROVIDERS: Family Provider Family Medicine; PCP Family Medicine; Visit Provider Internal Medicine Cardiovascular Disease
DX: I48.91 Unspecified atrial fibrillation (principal); I10 Essential (primary) hypertension; E66.9 Obesity, unspecified; Z68.33 Body mass index [BMI] 33.0-33.9, adult; E11.9 Type 2 diabetes mellitus without complications; Q76.0 Spina bifida occulta; Z98.84 Bariatric surgery status; Z79.899 Other long term (current) drug therapy; Z87.891 Personal history of nicotine dependence
CPT/HCPCS: 36415; 80048; 85027; 85610; 92960; 93005; J7040

== ENCOUNTER → 2017-12-13 20:00 | Outpatient (CLI) | payer MEDICARE, OTHER, SELFPAY | PROVIDERS: Family Provider Family Medicine; PCP Family Medicine; Visit Provider Internal Medicine Cardiovascular Disease | DX: G47.10 Hypersomnia, unspecified (principal); I48.91 Unspecified atrial fibrillation; E11.9 Type 2 diabetes mellitus without complications; I10 Essential (primary) hypertension; E66.9 Obesity, unspecified | CPT/HCPCS: 95810 ==

== ENCOUNTER → 2018-07-22 07:50 | Outpatient (CLI) | payer MEDICARE, OTHER, SELFPAY ==
[2018-04-25 14:06] VITALS: BMI 35.5
--- NOTE | 2018-07-22 07:54 | CT_ITS ---
STUDY: CT ABDOMEN AND PELVIS WITH AND WITHOUT CONTRAST REASON FOR EXAM: Male, 72 years old. Microhematuria. RADIATION DOSAGE (If Supplied By Facility): CTDIvol = ( 23.84 ) mGy, DLP = ( 2339.80 ) mGycm TECHNIQUE: Transaxial images were obtained from the dome of the diaphragm to the symphysis pubis without oral contrast. 75CC IV Isovue 300 was administered. Sagittal and coronal images were reconstructed. Individualized dose optimization techniques were used for this CT. COMPARISON: None. FINDINGS: The visualized lung bases are remarkable only for a few small scattered foci of subsegmental atelectasis. No pleural effusion. No pneumothorax. The visualized portions of the heart are within normal limits. Normal liver. Normal gallbladder and extrahepatic biliary system. Normal spleen. There is fatty infiltration of an otherwise unremarkable pancreas. Normal bilateral adrenal glands. There is a 1.4 cm, ovoid, soft tissue signal layering density involving and extending from the posterior right renal superior pole, sequence 3, image 41. Normal left kidney. It appears that there have been prior esophagogastric region surgery. There is a small sliding-type distal hiatal hernia. The stomach otherwise appears unremarkable. Normal small intestine. Normal colon. The appendix is visualized and appears normal. Normal abdominal aorta except for multifocal calcified plaque throughout the aortoiliac system. No aneurysm is delineated.. Normal inferior vena cava. There is mild thickening diffusely of the urinary bladder wall. There is moderate to significant enlargement of the prostate measuring 6.8 cm transversely by 6.4 cm in AP dimension. There is a fatty only periumbilical hernia. There are small fatty bilateral inguinal hernias. There is no acute osseous abnormality. There is no suspicious lytic or blastic osseous finding. There are diffuse spinal degenerative changes. CT/CT Abd/Pelvis W/WO Contrast IMPRESSION: Fatty infiltration of otherwise unremarkable appearing pancreas. Cortical isosignal of focus involving and extending from the posterior right renal superior pole may represent complex cysts. However, continued follow-up to document stability is recommended. Previous esophagogastric region surgery. Small sliding-type distal hiatal hernia. Atherosclerotic peripheral vascular disease. No aneurysm motility aerated. Mild diffuse thickening of the urinary bladder wall, probably a manifestation of chronic bladder outlet obstruction. Significant prostatomegaly as above. Significant mass effect upon urinary bladder base. Recommend further evaluation at this time. Fatty periumbilical hernia. Small fatty bilateral inguinal hernias. Electronically Signed: José Miguel Darling MD at 8:40 EDT , Service support ,
[2018-07-22 08:11] LABS: CREATININE FINGERSTICK 0.9 mg/dL (0.70-1.30); EGFR FINGERSTICK > 60.0000 mL/min (>60)
== END ==
PROVIDERS: Family Provider Student in an Organized Health Care Education/Training Program; PCP Student in an Organized Health Care Education/Training Program; Referring Provider Nurse Practitioner Adult Health; Visit Provider Nurse Practitioner Adult Health
DX: R31.29 Other microscopic hematuria (principal)
CPT/HCPCS: 74178; Q9967

== ENCOUNTER 2020-06-08 04:41 | Outpatient (RCR) | payer MEDICARE, OTHER, SELFPAY ==
[2019-12-11 10:24] VITALS: BMI 34.8
[2020-06-08] MEDS: COVID-19 VACC, MRNA(PFIZER)/PF 30 MCG/0.3 ML SYRINGE IM (10:23)
[2020-06-29] MEDS: COVID-19 VACC, MRNA(PFIZER)/PF 30 MCG/0.3 ML SYRINGE IM (10:04)
== END 2020-09-07 23:59 ==
LOC: IMMUN 04:41
PROVIDERS: PCP Student in an Organized Health Care Education/Training Program; Visit Provider Family Medicine
DX: Z23 Encounter for immunization (principal)
CPT/HCPCS: 0001A; 0002A; 91300

== ENCOUNTER 2020-06-12 22:32 | Emergency (ER) | payer MEDICARE, OTHER, SELFPAY ==
[2019-12-11 10:24] VITALS: BMI 34.8
[2020-06-12 22:33] VITALS: BP 127/66; PULSE 65; RESP 16; TEMP 36.4; O2SAT 100; BMI 34.4
--- NOTE | 2020-06-12 22:42 | CT_ITS ---
EXAMINATION : Head CT w/out contrast HISTORY : syncope COMPARISON : None. TECHNIQUE : Multiple contiguous axial images were obtained from the skull base to the vertex without intravenous contrast. A radiation dose optimization technique was used for this scan. FINDINGS : The ventricles and sulci are normal in size. There is no evidence for acute intracranial hemorrhage, mass effect, or midline shift. There is no extra-axial fluid collection. There is normal goldberg-white differentiation, without CT evidence of acute ischemia or infarct. The skull base and calvarium are unremarkable. The orbits are unremarkable. The paranasal sinuses are clear. The mastoid air cells are well-aerated. The soft tissues are unremarkable. CT/Brain/Head without Contrast IMPRESSION: No acute intracranial abnormality. Electronically Signed: Zoran Vincent MD at 23:17 EST Tel , Service support ,
--- NOTE | 2020-06-12 22:42 | EKG12_ITS ---
Test Reason : DIZZINESS Blood Pressure : / mmHG Vent. Rate : 065 BPM Atrial Rate : 065 BPM P-R Int : 196 ms QRS Dur : 096 ms QT Int : 448 ms P-R-T Axes : 091 037 018 degrees QTc Int : 465 ms Normal sinus rhythm Normal ECG Confirmed by LARA MIGUEL, MEME ([id number]), scientific publications editor MIGUEL ÁNGEL TAYLOR ([id number]) on 06/16/2020 9:37:09 AM Referred By: MR Confirmed By:MEME BERMUDEZ MD
--- NOTE | 2020-06-12 22:45 | ED.DCSUM_ITS ---
History of Present Illness Chief Complaint: Dizziness Narrative: Patient presenting for evaluation secondary to generalized weakness. Patient reports that he was out to dinner, and as he was finishing dinner he started to have a head to toe feeling of generalized weakness. Patient states that this was not lateralizing. It was bad enough to the point where his had to help him to the car and then out of the car. He felt as if he just could not move and that his whole body was heavy. He denies any visual changes speech difficulty or numbness. Denies any headaches. Denies any chest pain or shortness of breath associated with this. Never had any prior similar episodes in the past. He denies recent infectious signs or symptoms such as fever cough nausea or vomiting. Review of systems otherwise negative. Past Medical History - Allergies and Home Meds Allergies/Adverse Reactions: Allergies lisinopril Allergy (Verified 06/12/20 22:41) Shortness of breath ursodiol Allergy (Verified 06/12/20 22:41) Rash Primary Care Physician: Jaden Robertson DO [Primary Care Provider] - Prior records reviewed: Yes Past Medical History: - - Sick sinus syndrome, hypertension, GERD, past history of A. fib status post cardioversion Lives: With Family Smoking Status: Former smoker Alcohol: Occasional Drugs: None Review of Systems All systems negative except as indicated General: Reports: Malaise, - - Weakness Eyes: Denies: Visual changes - bilaterally, Diplopia ENT: Denies: Rhinorrhea, Sore throat Cardiovascular: Denies: Chest pain, Palpitations Respiratory: Denies: Dyspnea, Cough, Dyspnea on exertion Gastrointestinal: Denies: Abdominal pain, Nausea, Vomiting, Diarrhea, Melena, Hematochezia Genitourinary: Denies: Dysuria, Hematuria, Frequency Musculoskeletal: Denies: Back pain, Extremity Pain Skin: Reports: - - Diaphoresis Neurological: Denies: Headache, Weakness, Numbness Physical Exam Vital Signs/Narrative: Vital Signs Temp Pulse Resp BP Pulse Ox 06/12/20 22:33 97.5 F L 65 16 127/66 H 100 Inital Vital Signs reviewed: Yes General: Well nourished, Well developed, No Acute Distress Head: Normocephalic, Atraumatic Eyes: Perrl, EOMI, - - No evidence of nystagmus or visual field cuts ENT: Moist mucous membranes, No rhinorrhea Neck: Supple, Nontender Cardiovascular: Regular rate, Regular rhythm, No murmurs, - - 2+ radial, 2+ DP pulses bilaterally symmetric Respiratory: No distress, CTA bilaterally, Chest nontender Abdomen: Soft, Nontender, Nondistended, Normal bowel sounds. Negative for: Pulsatile mass Back: Nontender, Normal Inspection Extremities: Nontender, No edema Skin: Normal color, No rash Neurological: Alert, Oriented x3, Cranial nerves II-XII grossly intact, Normal Strength, Normal Sensation, - - NIH stroke scale is 0 Psychological: Normal affect, Normal Mood Diagnostic/Tx/Re-eval Chest X-Ray - ED: 2 View, Read by ED Physician, - - COPD no acute disease Clinical Impression(s) from Imaging Studies Chest X-Ray 06/12/20 23:00 IMPRESSION: There are findings consistent with COPD. There is no evidence of acute chest disease. Electronically Signed: Nickolas Hewitt MD at 23:23 EST , Service support , Laboratory Data 06/12/20 06/12/20 06/12/20 22:18 22:18 22:47 WBC 4.6 RBC 4.61 Hgb 13.4 Hct 41.6 MCV 90.2 MCH 29.1 MCHC 32.2 RDW Std Deviation 46.1 H RDW Coeff of Chris 14.1 Plt Count 181 MPV 10.3 Immature Gran % (Auto) 0.900 Neut % (Auto) 58.6 Lymph % (Auto) 31.7 [place] % (Auto) 6.5 Eos % (Auto) 1.7 Baso % (Auto) 0.6 Absolute Neuts (auto) 2.7 Absolute Lymphs (auto) 1.47 Nucleated RBC % 0 Sodium 141 Potassium 3.6 Chloride 108 H Carbon Dioxide 24.0 Anion Gap 9 BUN 10 Creatinine 0.94 Estim Creat Clear Calc 77.97 Est GFR (MDRD) Af Amer 101 Est GFR (MDRD) Non-Af 83 BUN/Creatinine Ratio 10.6 Glucose 147 H Lactic Acid 2.5 H* Calcium 8.5 Total Bilirubin 0.30 AST 14 L ALT 28 Alkaline Phosphatase 88 Troponin I < 0.015 Total Protein 7.6 Albumin 3.8 Globulin 3.8 Albumin/Globulin Ratio 1.0 - EKG Initial EKG Interpretation: - - Sinus rhythm at 65, isoelectric ST segments, normal T waves. Normal IN and QTc intervals. No evidence of acute ischemia or arrhythmia. - Medical Decision Making Patient presented secondary to an episode of generalized weakness and diaphoresis. EKG showed no signs of ischemia, arrhythmia, or cardiac block. CBC unremarkable, chemistry unremarkable, troponin was found to be negative. Patient had a modest elevation of his lactic acid at 2.5 he was given a liter normal saline rehydration. Chest x-ray by my personal review as well as radiology shows no acute pathology. CT imaging of the brain was found to be negative. Patient at this point has remained stable in the ED has ambulated to the bathroom twice, and feels that his symptoms are completely resolved. I reviewed the patient's records, he does have a history of having sick sinus syndrome in the past and has a loop recorder in place. Potentially the patient had an episode of bradycardia that caused this symptomatology but he has not had any telemetry events while he has been in the emergency department. I had a fei discussion with the patient as well as his about overnight observation on telemetry into the hospital versus early follow-up with his assistant case manager on Sunday. Patient wishes to be discharged, and I feel that this is an appropriate disposition for this patient. He seems very reliable, and I believe that he will follow-up acutely with his assistant case manager. Patient understands signs and symptoms for which to return. He was discharged in impr crystal condition. ED Disposition - Plan for ED Patient: Disposition: Home or Assisted Living Diagnosis: Pre-syncope Instructions: ED Near-Fainting, Uncertain Cause Referrals: Anthony Eduardo MD [STAFF PHYSICIAN] - 2 Days
[2020-06-12] MEDS: 0.9% Normal Saline 1,000 ML 1000 ML IV (22:46)
--- NOTE | 2020-06-12 23:00 | RAD_ITS ---
STUDY: X-RAY CHEST REASON FOR EXAM: Male, 74 years old. Syncope TECHNIQUE: Frontal and lateral views of the chest. COMPARISON: 06/18/2017. FINDINGS: There is hyperinflation of the lungs consistent with chronic obstructive lung disease (COPD). No infiltrates. No effusions. There is no demonstrated pleural abnormality. Normal size heart. Implanted personnel monitor is seen. Normal mediastinum and ambrose. Normal visualized pulmonary arteries. Normal visualized aortic arch and descending thoracic aorta. There are diffuse degenerative changes of the visualized thoracic spine. Normal visualized ribs, clavicles, and shoulders. There is no demonstrated abnormality of the visualized soft tissue structures of the upper abdomen. RAD/Chest PA and Lateral IMPRESSION: There are findings consistent with COPD. There is no evidence of acute chest disease. Electronically Signed: Nickolas Hewitt MD at 23:23 EST , Service support ,
[2020-06-12 23:09] LABS: AST(SGOT) 14 U/L (15-37); Alanine Aminotransfer ALT/SGPT 28 U/L (16-61); Albumin, Serum 3.8 g/dL (3.2-5.0); Alkaline Phosphatase 88 U/L (45-117); Anion Gap 9 (5-15); BUN 10 mg/dL (7-18); BUN/Creat Ratio 10.6 RATIO (10-20); Calcium,Total 8.5 mg/dL (8.5-10.1); Chloride 108 mmol/L (98-107); Creatinine, Serum 0.94 mg/dL (0.70-1.30); EST Glomerular Filtration Rate 83 mL/min (>60); Est Glom Filt Rate - Afr Amer 101 mL/min (>60); Estimated Creatinine Clearance 77.97 ml/min; Globulin 3.8 g/dL (2.2-4.2); Glucose 147 mg/dL (74-106); Potassium 3.6 mmol/L (3.5-5.1); Protein, Total 7.6 g/dL (6.4-8.2); Sodium Level 141 mmol/L (136-145)
[2020-06-12 23:11] LABS: Absolute Lymphocyte Count 1.47 X10^3/uL (0.83-4.51); Absolute Neutrophil Count 2.7 X10^3/uL (2.0-7.7); Basophil# 0.03 X10^3/uL; Basophil% 0.6 % (0-1); Eosinophil# 0.08 X10^3/uL; Eosinophils% 1.7 % (0-5); Hematocrit 41.6 % (40-54); Hemoglobin 13.4 g/dL (13.0-16.5); Lymphocyte # 1.47 X10^3/ul (4.0); Lymphocyte % 31.7 % (19-41); Mean Corp Hgb Conc 32.2 g/dL (32-36); Mean Corpuscular Hgb 29.1 pg (27.0-32.0); Mean Corpuscular Volume 90.2 fL (80-94); Mean Platelet Vol. 10.3 fl (6.2-12.0); Monocyte% 6.5 % (0-10); NRBC Flagged by Analyzer 0 % (0-5); Neutrophil # 2.71 X10^3/uL (2.7-7.7); Neutrophil % 58.6 % (47-70); Platelet Count 181 K/mm3 (150-450); RBC Distribution Width CV 14.1 % (11.6-14.6); RBC Distribution Width SD 46.1 fl (35.1-43.9); Red Blood Count 4.61 M/mm3 (4.6-6.2); White Blood Count 4.6 K/mm3 (4.4-11.0)
[2020-06-12 23:39] LABS: Lactic Acid 2.5 mmol/L (0.4-1.9)
[2020-06-13 03:00] LABS: Reflex Lactate? Y
== END 2020-06-13 00:41 | disposition home or self-care (01) ==
PROVIDERS: Emergency Provider Emergency Medicine; PCP Student in an Organized Health Care Education/Training Program
DX: R55 Syncope and collapse (principal); I49.5 Sick sinus syndrome; I10 Essential (primary) hypertension; K21.9 Gastro-esophageal reflux disease without esophagitis; Z79.82 Long term (current) use of aspirin; Z79.899 Other long term (current) drug therapy; Z87.891 Personal history of nicotine dependence
CPT/HCPCS: 70450; 71046; 80053; 83605; 84484; 85025; 93005; 96360; 96361; 99285; A4216

== ENCOUNTER → 2020-07-26 09:36 | Outpatient (CLI) | payer MEDICARE, OTHER, SELFPAY ==
[2020-07-26 11:18] LABS: Anion Gap 4 (5-15); BUN 8 mg/dL (7-18); BUN/Creat Ratio 8.8 RATIO (10-20); Calcium,Total 8.9 mg/dL (8.5-10.1); Chloride 103 mmol/L (98-107); Creatinine, Serum 0.91 mg/dL (0.70-1.30); EST Glomerular Filtration Rate 87 mL/min (>60); Est Glom Filt Rate - Afr Amer 105 mL/min (>60); Glucose 129 mg/dL (74-106); Magnesium 2.3 mg/dL (1.6-2.6); PSA,Total- Diagnostic 9.56 ng/mL (0.0-4.0); Sodium Level 137 mmol/L (136-145); Thyroid Stim Hormone (TSH) 1.58 uIU/mL (0.358-3.74)
== END ==
PROVIDERS: PCP Student in an Organized Health Care Education/Training Program; Referring Provider Physician Assistant Medical; Visit Provider Physician Assistant Medical
DX: R97.20 Elevated prostate specific antigen [PSA] (principal); I48.19 Other persistent atrial fibrillation
CPT/HCPCS: 36415; 80048; 83735; 84153; 84443

== ENCOUNTER 2020-09-08 06:02 | Day surgery (SDC) | payer MEDICARE, OTHER, SELFPAY ==
--- NOTE | 2020-09-01 12:36 | EKG12_ITS ---
Test Reason : Blood Pressure : / mmHG Vent. Rate : 055 BPM Atrial Rate : 055 BPM P-R Int : 184 ms QRS Dur : 094 ms QT Int : 446 ms P-R-T Axes : 069 039 045 degrees QTc Int : 426 ms Sinus bradycardia Otherwise normal ECG Confirmed by HUNTER MIGUEL, SOFIA ([id number]), editorial clerk MIGUEL ÁNGEL TAYLOR ([id number]) on 09/02/2020 12:39:57 PM Referred By: Madan Lee Confirmed By:SOFIA HARRISON MD
[2020-09-01 13:00] LABS: Hematocrit 39.8 % (40-54); Hemoglobin 12.9 g/dL (13.0-16.5); Mean Corp Hgb Conc 32.4 g/dL (32-36); Mean Corpuscular Hgb 28.6 pg (27.0-32.0); Mean Corpuscular Volume 88.2 fL (80-94); Mean Platelet Vol. 9.9 fl (6.2-12.0); Platelet Count 217 K/mm3 (150-450); RBC Distribution Width CV 14.3 % (11.6-14.6); RBC Distribution Width SD 45.9 fl (35.1-43.9); Red Blood Count 4.51 M/mm3 (4.6-6.2); White Blood Count 4.8 K/mm3 (4.4-11.0)
[2020-09-01 13:08] LABS: International Normalized Ratio 1.2; Partial Thromboplast Time 35.9 Seconds (24.1-36.2); Prothrombin Time (Protime)PT. 14.1 SECONDS (11.7-14.9)
[2020-09-01 13:26] LABS: Hemoglobin A1c 5.7 % (3.8-5.6)
[2020-09-01 13:29] LABS: AST(SGOT) 22 U/L (15-37); Alanine Aminotransfer ALT/SGPT 28 U/L (16-61); Albumin, Serum 3.6 g/dL (3.2-5.0); Alkaline Phosphatase 92 U/L (45-117); Anion Gap 4 (5-15); BUN 11 mg/dL (7-18); BUN/Creat Ratio 11.3 RATIO (10-20); Bilirubin, Direct 0.13 mg/dL (0.00-0.30); Calcium,Total 8.5 mg/dL (8.5-10.1); Chloride 108 mmol/L (98-107); Creatinine, Serum 0.98 mg/dL (0.70-1.30); EST Glomerular Filtration Rate 80 mL/min (>60); Est Glom Filt Rate - Afr Amer 97 mL/min (>60); Globulin 3.7 g/dL (2.2-4.2); Glucose 112 mg/dL (74-106); Potassium 4.1 mmol/L (3.5-5.1); Protein, Total 7.3 g/dL (6.4-8.2); Sodium Level 138 mmol/L (136-145)
[2020-09-07 09:42] VITALS: BMI 33.2
[2020-09-08] VITALS (9 sets, daily range): BP systolic 113–137; BP diastolic 63–77; PULSE 56–77; RESP 16–18; TEMP 36–36.9; O2SAT 92–100; BMI 33.4; BMI 35.9
[2020-09-08] MEDS: Lactated Ringers 1,000 ML 100 ML IV ×2 (06:43→08:45)
[2020-09-08 06:50] LABS: Bedside Glucose 138 mg/dL (70-110)
[2020-09-08] MEDS: Cefazolin 2 GM in 0.9% Normal Saline 100 ML IV (07:23)
--- NOTE | 2020-09-08 07:30 | PROS_PTH ---
PATIENT: FARIBA ALATORRE LOC: [facility] – [place], [place] U#:[id number] AGE/SX: 74/M ROOM: RE09/08/[address]: Dr. Madan Lee MD : 1945 BED: DIS: 09/09/2020 SPEC #: [id number] RECD: 09/08/20 11:42 STATUS: JOSHUA REErlinda #: [id number] KASSIE: 09/08/20 07:[address]: Madan Lee DEPT: SURGICAL PATHOLOGY RECD BY: Ovidio Kim ENTERED: 09/08/20 12:06 SP TYPE: TURP OTHR DR: Dr. Jaden Robertson, DO Tissues: Prostate, NOS Procedures: Surgery Specimen Level IV HEADER OPERATION: Cysto, TUR prostate, Olympus PRE-OP DIAGNOSIS: BPH TISSUE SUBMITTED: Prostate tissue MICROSCOPIC DIAGNOSIS Prostate, transurethral resection: Benign nodular hyperplasia, glandular and stromal types. Chronic inflammation. AM:davin 09/09/2020 MICROSCOPIC DESCRIPTION Slides are reviewed. GROSS DESCRIPTION Received is one container labeled with the patient's name and designated prostate tissue. The specimen consists of multiple irregular fragments of pink-palmer, rubbery, soft tissue that in aggregate weigh 29.4 gm and measure in aggregate 6 x 6 x 2.5 cm. Cashier Self Service Gasoline portions are submitted in 10 cassettes. / AM:davin 09/08/20 TC:3 CPT: 18044
--- NOTE | 2020-09-08 07:31 | PCM.HP.STD ---
HPI - General HPI Narrative FARIBA ALATORRE, is a 74 M who presents for transurethral resection of the prostate he has obstructive prostate obstructive urinary symptoms. We discussed in the preoperative area how the surgery is done, what to expect afterwards, we talked about the risk of bleeding infection scar tissue talked about the retrograde ejaculation patient was given ample time to answer was questions and he signed the consent form. 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 Sick sinus syndrome Sleep apnea Spina bifida occulta Type 2 diabetes mellitus without complications Home Medications cholecalciferol (vitamin D3) 25 mcg (1,000 unit) capsule 3,000 unit PO QDAY cap 06/28/17 [History Last Taken 08/20/17] cyanocobalamin (vitamin B-12) 1,000 mcg capsule 1,000 mcg PO QDAY 06/28/17 [History Last Taken 08/20/17] sildenafil 100 mg tablet 100 mg PO PRN PRN 10 Days #10 06/28/17 [History Last Taken 08/20/17] aspirin 81 mg tablet,delayed release 81 mg PO QDAY #90 tab 10/23/18 [Rx Last Taken 09/05/20] diltiazem HCl 120 mg capsule,extended release 24 hr 120 mg PO BID #180 cap 07/07/20 [Rx Last Taken 09/08/20] rivaroxaban 20 mg tablet 20 mg PO QHS #30 tablet 07/07/20 [Rx Last Taken 08/20/20] zolpidem 2.5 mg PO QHS PRN 09/01/20 [History Last Taken 09/07/20] amiodarone 200 mg tablet 200 mg PO BID #90 tab 09/07/20 [Rx Last Taken 09/08/20] ciprofloxacin HCl [Cipro] 500 mg PO BID #14 tab 09/08/20 [Rx Last Taken Unknown] Allergy/AdvReac Type Severity Reaction Status Date / Time lisinopril Allergy Shortness Verified 09/08/20 06:24 of breath ursodiol Allergy Rash Verified 09/08/20 06:24 Family History Father CAD (coronary artery disease) CABG mid 50's and redo mid 70's Mother Heart disease ICD Surgical History History of ankle surgery History of cardioversion (11/26/17) History of gastric bypass (12/2008) History of loop recorder (11/14/17) History of radiofrequency ablation procedure for cardiac arrhythmia (11/14/17) History of tonsillectomy Social History Smoking Status: Never smoker ROS Constitutional Constitutional: Denies chills, fever(s) or malaise Eyes Eyes: Denies blurry vision or change in vision ENT HEENT: Reports none Cardiovascular Cardiovascular: Denies chest pain or palpitations Respiratory/Chest Respiratory/Chest: Denies cough or shortness of breath with exertion Gastrointestinal Gastrointestinal: Denies abdominal pain, constipation or diarrhea Genitourinary Genitourinary: Reports systems reviewed and no addt'l complaints, except as documented Musculoskeletal Musculoskeletal: Denies back pain, joint stiffness or joint swelling Integumentary Integumentary: Denies dry skin, jaundice, lesions or rash Neurologic Neurologic: Denies confusion, syncope or weakness Psychiatric Psychiatric: Reports none; Denies anxiety or depression Endocrine Endocrinology: Denies excessive sweating, fatigue or flushing Hematologic/Lymphatic Hematologic/Lymphatic: Denies anemia, easy bleeding or easy bruising Vital Signs Vital Signs Vital Signs: 09/08/20 06:29 Temperature 97.7 F L Temperature Source Temporal Pulse Rate 77 Respiratory Rate 18 Respiratory Pattern Normal Blood Pressure 137/75 H Blood Pressure Mean 95 Blood Pressure Source Monitor Blood Pressure Position Semi-Fowlers Blood Pressure Location Left Arm Pulse Ox 96 Oxygen Delivery Method Room Air Weight Weight: 111.9 kg Body Mass Index (BMI) 33.4 Physical Exam Const alert and oriented x3 General Appearance: cooperative HEENT normocephalic, head/scalp atraumatic, EAC's normal and TM's normal bilaterally Eyes PERRL and EOMs intact bilaterally Pupil: sluggish Neck no lymphadenopathy, supple and no JVD General: trachea midline Lymph Lymphatic: no lymphadenopathy noted, lymphedema and lymphadenopathy Resp normal respiratory effort, normal air movement and clear to auscultation bilaterally Cardio regular rate, regular rhythm and peripheral pulses 2+ throughout GI soft to palpation, non-tender and non-distended Extremity normal capillary refill and no clubbing, cyanosis or edema General Extremity: no tenderness to palpation of joints or extremities Skin no rashes or lesions noted General Skin Exam: turgor normal Lesions: no lesions Rashes: no rashes Neuro CN's II-XII intact bilaterally Speech: speech normal Motor Exam: strength 5/5 throughout; Negative for general weakness Psych thought process normal, cooperative and affect normal Appearance: appropriate Results Lab / Micro Data Result Diagrams: 09/01/20 12:42 09/01/20 12:42 Labs: Laboratory Results - last 24 hr 09/08/20 06:23 POC Glucose 138 H Assessment & Plan Assessment/Plan (1) BPH with obstruction/lower urinary tract symptoms: PLAN: Plan to proceed with a transurethral resection of the prostate.
--- NOTE | 2020-09-08 07:32 | PCM.DC ---
Discharge Instructions Diet Discharge Diet: No restrictions Activity Discharge Activity: May Not Drive (for 3 days while taking narcotic pain medications.) Dressing / Incision Call your doctor if your incision/area has: Continuous Slow Oozing, Increased Pain/ Swelling, Increased Redness and Foul Smelling Discharge Call your doctor if you observe: Fever of 101 or Higher, Numbness or Tingling, Shortness of breath, Dizziness, Calf discomfort and Uncontrolled pain Follow Up Care Please Follow Up With: Madan Lee MD When: 2 week Test Results: Test results from this visit will be discussed in further detail at your follow-up appointment, if applicable. Discharge Plan Admission Primary Reason for Your Visit: TURP Attending Provider: Madan Lee Primary Care Provider: Jaden Robertson Discharge Orders/Prescriptions Prescriptions: New ciprofloxacin HCl [Cipro] 500 mg tablet 500 mg PO BID Qty: 14 RF: 0 Continued sildenafil [Viagra] 100 mg tablet 100 mg PO PRN PRN (Reason: ED) 10 Days Qty: 10 RF: 0 cholecalciferol (vitamin D3) 1,000 unit capsule 3,000 unit PO QDAY RF: 0 cyanocobalamin (vitamin B-12) 1,000 mcg capsule 1,000 mcg PO QDAY RF: 0 amiodarone 200 mg tablet 200 mg PO BID Qty: 90 RF: 0 zolpidem 5 mg tablet 2.5 mg PO QHS PRN (Reason: Sleep) RF: 0 diltiazem HCl 120 mg capsule,extended release 24hr 120 mg PO BID Qty: 180 RF: 3 Held aspirin [Adult Aspirin Regimen] 81 mg tablet,delayed release (DR/EC) 81 mg PO QDAY Qty: 90 RF: 3 Hold Instructions: Resume on 09/22/20. Xarelto 20 mg tablet 20 mg PO QHS Qty: 30 RF: 11 Hold Instructions: Resume on 09/22/20. Discontinued tamsulosin 0.4 mg capsule 0.4 mg PO BID RF: 0 dutasteride [Avodart] 0.5 mg capsule 0.5 mg PO DAILY RF: 0 Other Ambulatory Orders: 12 Lead EKG (Routine) Location: None Selected Ordered By: Dr. Woodrow Leone Referrals / Follow Up: Jaden Robertson DO [Primary Care Provider] - Madan Lee MD [STAFF PHYSICIAN] -
--- NOTE | 2020-09-08 08:58 | PCM.OPRPT ---
Report of Operation Date of Procedure: 09/08/20 Pre-Operative Diagnosis: BPH with obstruction Post-Operative Diagnosis: Same Surgery/Procedure Performed:: Transurethral resection of the prostate Description of Surgical Findings:: In the preoperative setting I discussed with the patient how the surgery would be done with expect afterwards. We discussed how a prostate resection is done and we discussed the risk of the surgery including, bleeding, infection, retrograde ejaculation, changes with ejaculation or intercourse,. We discussed the possibility that the resection of the prostate may not alleviate his urinary symptoms. We discussed the small risk of developing scar tissue along the urethral channel and strictures. We also discussed the chance of the prostate could grow back and he may need further surgery or treatment in the future for prostate problems. Patient was taken back to the operating room, timeout procedure was performed, he was identified and marked and placed on the operating room table. He underwent general anesthesia. He was placed in dorsolithotomy position. Penis and testicles were prepped and draped in usual sterile fashion. Went into the bladder using the visual obturator with a resectoscope. Once inside the bladder identified the right and left ureteral orifice. I then identified the prostate and the anatomy of the prostate. I marked out the area of the sphincter and the verumontanum was identified. I then proceeded with the prostate resection first resected the median lobe. And then resected the right lobe of the prostate. Then to resect the left lobe of the prostate. I then resected the apical tissue of the prostate. Made sure that there was no injury to the sphincter or the verumontanum was still intact. At the end of the resection all the chips were Ellik out of the bladder. I then identified the left and right ureteral orifice and these were confirmed to be in good position and effluxing and not injured. The resectoscope was removed, a 22 Mongolian catheter was placed into the bladder on continuous irrigation. And the urine was fairly light pink color and draining normally. He was taken back to the PACU in good condition. Surgeon: Rosa Type of Anesthesia: General Drains: 22 Mongolian three-way catheter Admit VTE Documentation VTE Present on Admission: No VTE Mechan Device Prophylaxis: SCD's
[2020-09-08 09:35] LABS: Bedside Glucose 141 mg/dL (70-110)
[2020-09-08] MEDS: 0.9% Normal Saline 1,000 ML 125 ML IV ×2 (11:21→20:05)
--- NOTE | 2020-09-08 12:17 | CHAPLAIN ---
Type of Pastoral Visit _x__ Initial Visit ___ Follow-up Visit ___ On-call Visit ___ General Patient Visit ___ Spiritual Assessment ___ Family Conference ___ Bereavement ___ Rapid Response ___ Code Blue ___ Other (describe below) Pastoral Care Referral From _x__ Patient ___ Family ___ Nurse ___ Physician ___ Licensed Club Manager ___ Crate Opener ___ Other (describe below) Sacrament/Intervention _x__ Active listening ___ Anointing ___ Sikhism ___ Bereavement ___ Communion _x__ Bella exploration ___ ___ Life review _x__ Prayer ___ Reconciliation ___ Sacrament of Sick ___ Supportive presence ___ Wedding ___ Other (describe below) Pastoral Comments
[2020-09-08] MEDS: Ciprofloxacin 400 MG/200 ML BAG 200 MG IV (15:03)
[2020-09-08] MEDS: Zolpidem Tartrate 5 MG Tablet 2.5 MG PO (21:53)
[2020-09-08] MEDS: dilTIAZem CD 120 MG Capsule PO (21:55)
[2020-09-08] MEDS: Acetaminophen 325 MG Tablet PO (21:55)
[2020-09-08] MEDS: Amiodarone 200 MG Tablet PO (21:55)
[2020-09-09 02:00] VITALS: BP 122/67; PULSE 68; RESP 16; TEMP 37.5; O2SAT 97
[2020-09-09 02:17] VITALS: BMI 35.9
[2020-09-09] MEDS: Ciprofloxacin 400 MG/200 ML BAG 200 MG IV (03:15)
[2020-09-09] MEDS: 0.9% Normal Saline 1,000 ML 125 ML IV (03:16)
[2020-09-09 05:55] VITALS: BMI 35.9
[2020-09-09 05:57] VITALS: BP 130/70; PULSE 64; RESP 16; TEMP 36.7; O2SAT 95
--- NOTE | 2020-09-09 07:23 | PN_ITS ---
Progress Note d/c [facility] after voids.
--- NOTE | 2020-09-09 07:23 | PCM.PN.BLA ---
Progress Note d/c [facility] after voids.
[2020-09-09] MEDS: Amiodarone 200 MG Tablet PO (09:50)
[2020-09-09] MEDS: dilTIAZem CD 120 MG Capsule PO (09:50)
[2020-09-09 09:52] VITALS: BP 130/66; PULSE 62; RESP 16; TEMP 36.6; O2SAT 99
--- NOTE | 2020-09-09 10:01 | PHA.DC.MC ---
Pharmacy Service has performed discharge medication reconciliation and counseling for this patient. The patient was counseled on the following discharge medications and changes in medications for homegoing were reviewed. 1. CIPROFLOXACIN The Reason for Use, instructions for use, and potential side effects were reviewed for all new medications. The patient's questions regarding all of their medications were answered. The patient was able to verbally demonstrate an understanding of their discharge medications. Home Medications cholecalciferol (vitamin D3) 25 mcg (1,000 unit) capsule 3,000 unit PO QDAY cap 06/28/17 cyanocobalamin (vitamin B-12) 1,000 mcg capsule 1,000 mcg PO QDAY 06/28/17 sildenafil 100 mg tablet 100 mg PO PRN PRN 10 Days #10 06/28/17 aspirin 81 mg tablet,delayed release 81 mg PO QDAY #90 tab 10/23/18 diltiazem HCl 120 mg capsule,extended release 24 hr 120 mg PO BID #180 cap 07/07/20 rivaroxaban 20 mg tablet 20 mg PO QHS #30 tablet 07/07/20 zolpidem 2.5 mg PO QHS PRN 09/01/20 amiodarone 200 mg tablet 200 mg PO BID #90 tab 09/07/20 ciprofloxacin HCl [Cipro] 500 mg PO BID #14 tab 09/08/20 The patient's discharge medication list was reviewed for discrepancies and discrepancies were resolved.
[2020-09-09 11:12] VITALS: BMI 35.9
== END 2020-09-09 13:48 ==
LOC: SDC 06:02 → AC 06:02 → MS3 11:55
PROVIDERS: Anesthesiology; PCP Student in an Organized Health Care Education/Training Program; Referring Provider Urology; Visit Provider Urology
PROC: (CPT 52601; principal; 2020-09-08 07:20)
DX: N40.1 Benign prostatic hyperplasia with lower urinary tract symptoms (principal); N13.8 Other obstructive and reflux uropathy; I48.0 Paroxysmal atrial fibrillation; E11.9 Type 2 diabetes mellitus without complications; I10 Essential (primary) hypertension; E78.00 Pure hypercholesterolemia, unspecified; G47.00 Insomnia, unspecified; G47.33 Obstructive sleep apnea (adult) (pediatric); K21.9 Gastro-esophageal reflux disease without esophagitis; E66.9 Obesity, unspecified; Z68.33 Body mass index [BMI] 33.0-33.9, adult; Z79.82 Long term (current) use of aspirin; Z79.01 Long term (current) use of anticoagulants; Z79.899 Other long term (current) drug therapy; Z98.84 Bariatric surgery status
CPT/HCPCS: 00914; 52601; 36415; 80048; 80076; 82962; 83036; 85027; 85610; 85730; 88305; 93005; J7030; J7120; J0744; J2405

== ENCOUNTER → 2021-01-11 09:30 | Outpatient (CLI) | payer MEDICARE, OTHER, SELFPAY ==
[2021-01-11 11:17] LABS: PSA,Total- Diagnostic 9.16 ng/mL (0.0-4.0)
== END ==
PROVIDERS: PCP Student in an Organized Health Care Education/Training Program; Referring Provider Urology; Visit Provider Urology
DX: N40.1 Benign prostatic hyperplasia with lower urinary tract symptoms (principal)
CPT/HCPCS: 36415; 84153

== ENCOUNTER 2022-01-26 15:22 | Outpatient (CLI) | payer MEDICARE, OTHER, SELFPAY ==
[2022-01-26] MEDS: 0.9% Saline Lock 10 ML Syringe IV ×3 (15:42→15:54)
[2022-01-26 15:43] VITALS: BP 144/69; PULSE 57; RESP 16; TEMP 36.9; O2SAT 98; BMI 31.0
[2022-01-26] MEDS: BEBTELOVIMAB 175 MG/2 ML VIAL IV (15:51)
[2022-01-26 16:21] VITALS: BP 135/73; PULSE 53; RESP 16; TEMP 36.7; O2SAT 98
[2022-01-26 16:42] VITALS: BP 142/62; PULSE 57; RESP 16; TEMP 36.6; O2SAT 99
== END 2022-01-26 16:51 | disposition home or self-care (01) ==
LOC: MS3OUT 15:23 → MS2 15:24
PROVIDERS: PCP Student in an Organized Health Care Education/Training Program; Visit Provider Nurse Practitioner Acute Care
DX: U07.1 COVID-19 (principal)
CPT/HCPCS: M0222; Q0222; A4216

== ENCOUNTER → 2022-04-12 | Outpatient (CLI) | payer MEDICARE, OTHER, SELFPAY ==
--- NOTE | 2022-04-12 12:55 | ECHOD_ITS ---
Reason For Study: ATRIAL FIBRILLATION Procedure This was a 2D Doppler, Color Flow transthoracic echocardiogram. Exam performed in department. Left Ventricle Normal LV size. Left ventricular systolic function is normal. The estimated ejection fraction is 60 %. No regional wall motion abnormalities noted. Right Ventricle Normal RV size. Normal systolic function. Atria The left atrium is moderately enlarged. Normal right atrium. Mitral Valve Normal mitral valve. Tricuspid Valve Normal tricuspid valve. Mild tricuspid valve insufficiency. Pulmonary artery systolic pressure is 30 mmHg. Aortic Valve Trisinus/trileaflet aortic valve. Pulmonic Valve Normal pulmonic valve. Great Vessels Normal aortic root. The pulmonary artery is normal size. Normal inferior vena cava. Pericardium/Pleural No pericardial effusion. MMode/2D Measurements & Calculations LVIDd: 4.7 cm IVSd: 1.1 cm Ao root diam: 3.6 cm LVIDs: 3.2 cm LVPWd: 0.84 cm RVDd: 4.4 cm FS: 33.5 % LAV(MOD-bp): 122.3 ml LVAd ap4: 34.7 cm2 SV(MOD-sp4): 76.2 ml LAV(MOD-bp) Indexed: 53.7 ml/m2 LVLd ap4: 8.9 cm LAV(MOD-sp2): 112.7 ml EDV(MOD-sp4): 114.6 ml LAV(MOD-sp4): 133.6 ml EDV(sp4-el): 114.4 ml LVAs ap4: 17.6 cm2 LVLs ap4: 7.1 cm ESV(MOD-sp4): 38.4 ml ESV(sp4-el): 37.0 ml EF(MOD-sp4): 66.5 % EF(sp4-el): 67.6 % SV(sp4-el): 77.4 ml LA A4 area: 34.3 cm2 LA dimension(2D): 5.5 cm RA A4 area: 21.0 cm2 Time Measurements MV dec time: 0.19 sec Doppler Measurements & Calculations MV E max mark: 79.3 cm/sec Lat Peak E' Mark: 9.6 cm/sec Med Peak E' Mark: 8.9 cm/sec MV A max mark: 54.5 cm/sec E/E' lat: 8.2 E/E' med: 9.0 MV E/A: 1.5 Ao V2 max: 133.0 cm/sec LV V1 max: 108.1 cm/sec MV dec slope: 427.6 cm/sec2 Ao max P.1 mmHg LV V1 max P.7 mmHg LV V1 mean P.3 mmHg LV V1 mean: 69.8 cm/sec LV V1 VTI: 27.4 cm PA V2 max: 86.0 cm/sec TR max mark: 258.9 cm/sec TR max P.9 mmHg ECHO/Echo Complete Interpretation Summary Normal LV size. Left ventricular systolic function is normal. The estimated ejection fraction is 60 %. The left atrium is moderately enlarged. Pulmonary artery systolic pressure is 30 mmHg. Ordering Physician: Anthony Eduardo Performed By: Salma Ward
== END | disposition home or self-care (01) ==
LOC: CVS 12:54
PROVIDERS: PCP Student in an Organized Health Care Education/Training Program; Visit Provider Internal Medicine Cardiovascular Disease
DX: Z98.890 Other specified postprocedural states (principal)
CPT/HCPCS: 93306

== ENCOUNTER → 2023-01-29 | Outpatient (CLI) | payer MEDICARE, OTHER, SELFPAY ==
[2023-01-29 10:31] LABS: PSA,Total- Diagnostic 5.93 ng/mL (0.0-4.0)
== END | disposition home or self-care (01) ==
LOC: LAB 09:33
PROVIDERS: PCP Student in an Organized Health Care Education/Training Program; Referring Provider Nurse Practitioner; Visit Provider Nurse Practitioner
DX: R97.20 Elevated prostate specific antigen [PSA] (principal)
CPT/HCPCS: 36415; 84153

== ENCOUNTER → 2023-09-13 | Outpatient (CLI) | payer MEDICARE, OTHER, SELFPAY | END | disposition home or self-care (01) | LOC: PSN 10:54 | PROVIDERS: PCP Student in an Organized Health Care Education/Training Program; Referring Provider Nurse Practitioner Family; Visit Provider Nurse Practitioner Family | DX: I48.0 Paroxysmal atrial fibrillation (principal); I49.5 Sick sinus syndrome; R00.1 Bradycardia, unspecified | CPT/HCPCS: 93225; 93226 ==

== ENCOUNTER → 2024-06-17 | Outpatient (CLI) | payer MEDICARE, OTHER, SELFPAY | END | disposition home or self-care (01) | LOC: LAB 09:47 | PROVIDERS: PCP Student in an Organized Health Care Education/Training Program; Visit Provider Urology | DX: N39.0 Urinary tract infection, site not specified (principal) | CPT/HCPCS: 87086 ==

== ENCOUNTER → 2024-06-19 | Outpatient (CLI) | payer MEDICARE, OTHER, SELFPAY ==
--- NOTE | 2024-06-19 13:40 | CT_ITS ---
PROCEDURE: CT ABDOMEN WITHOUT CONTRAST AND CT ABDOMEN/PELVIS WITH CONTRAST ([id number]), 06/19/2024 REASON FOR EXAM: GROSS HEMATURIA TECHNIQUE: CT abdomen was performed without IV contrast. Subsequently, CT abdomen and pelvis was performed with IV contrast. Multiplanar reformats were generated. CONTRAST: Isovue-300 VOLUME: 90 mL RADIATION DOSE SUMMARY: CTDlvol: 26.8 mGy DLP: 3106.09 mGycm One or more dose reduction techniques were used (e.g., Automated exposure control, adjustment of the mA and/or kV according to patient size, use of iterative reconstruction technique). COMPARISON: 07/22/2018; note that images only are available for review, the report is not available at the time of the dictation. FINDINGS: Lung bases: Mild atelectasis/scarring. Mild but three-vessel coronary atherosclerosis. Trace aortic annular calcification. Accessory fissures within the RIGHT middle and lower lobes, normal variant. Tiny hiatal hernia. Liver: Unremarkable. Spleen: Unremarkable. Gallbladder: Cholelithiasis. Pancreas: Diffuse fatty infiltration. Adrenals: Unremarkable. Kidneys: Cortical scarring of the RIGHT upper pole. Bowel: Julianne-en-Y gastric bypass. Normal caliber appendix. Lymph nodes: Unremarkable. Vasculature: Mild/moderate atherosclerosis. Circumaortic LEFT renal vein, normal variant. Peritoneum: Unremarkable. Bladder: Underdistended across both phases and suboptimally evaluated. Mass- effect by the enlarged prostate, otherwise grossly unremarkable. Reproductive Organs: Marked prostatomegaly with interval TURP, otherwise not well evaluated by CT Body Wall: Tiny fat containing inguinal and umbilical hernias. Bones: Multilevel spondylosis. Lumbar dextroscoliosis. At least moderate/severe focal spinal canal stenosis suggested at L4-L5, not well evaluated by CT. CT/CT Abd/Pelvis W/WO Contrast IMPRESSION: 1. No definite etiology for reported hematuria identified. Note this should not preclude further clinical follow-up such as cystoscopy. 2. Marked prostatomegaly with interval TURP. Correlate with PSA. 3. Additional description as above. Reading Location: [id number]
== END | disposition home or self-care (01) ==
LOC: CT 13:15
PROVIDERS: PCP Student in an Organized Health Care Education/Training Program; Referring Provider Urology; Visit Provider Urology
DX: R31.0 Gross hematuria (principal)
CPT/HCPCS: 74178; Q9967